=== PATIENT | female | born 1965 | race Caucasian/White ===

== ENCOUNTER 2019-06-29 16:50 | Observation (INO) | payer OTHER ==
[~2019-06-29] VITALS: Ht 154.9 cm; Wt 62.6 kg
--- NOTE | 2019-06-29 16:50 | NUR ---
PT BIBA TO BED 01.
[2019-06-29 17:01] VITALS: BP 164/90
--- NOTE | 2019-06-29 17:05 | NUR ---
ERMD AT BEDSIDE
[2019-06-29 17:41] LABS: BASOPHILS # (AUTO) 0.1 K/uL (0.00-0.22); BASOPHILS % (AUTO) 1.8 % (0.0-2.0); EOSINOPHILS # (AUTO) 0.4 K/uL (0-0.4); EOSINOPHILS % (AUTO) 8.5 % (0.0-4.0); HEMATOCRIT 35.5 % (36-48); HEMOGLOBIN 11.8 g/dL (12.0-16.0); LYMPHOCYTES # (AUTO) 1.6 K/uL (2.5-16.5); LYMPHOCYTES % (AUTO) 35.5 % (20.5-51.1); MEAN CORPUSCULAR HEMOGLOBIN 29 pg (27-31); MEAN CORPUSCULAR HGB CONC 33 g/dL (33-37); MEAN CORPUSCULAR VOLUME 87.4 fL (80-94); MONOCYTES # (AUTO) 0.4 K/uL (0.8-1.0); MONOCYTES % (AUTO) 8.3 % (1.7-9.3); NEUTROPHILS # (AUTO) 2.1 K/uL (1.8-7.7); NEUTROPHILS % (AUTO) 45.9 % (42.2-75.2); PLATELET COUNT (AUTO) 253 K/uL (140-450); RED BLOOD CELL COUNT(AUTO) 4.06 MIL/uL (4.20-5.40); RED CELL DISTRIBUTION WIDTH 14.2 % (11.6-13.7); WHITE BLOOD COUNT (AUTO) 4.6 K/uL (4.8-10.8)
--- NOTE | 2019-06-29 17:49 | NUR ---
C/O NON RADIATING INTERMITTENT L SIDED CHEST PAIN STARTING TODAY 01/17 AND SHARP. PT DENIES N/V/SOB/DIAPHORESIS. PT DENIES PAIN OF RIGHT NOW. PT ALERT AND CONVERSATING APPROPRIATELY. PT REPORTS THE PAIN BEGAN WHILE SHE WAS SITTING DOWN, AND LASTED FOR APPROX. 20 MIN. 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
--- NOTE | 2019-06-29 18:20 | NUR ---
PT RESTING IN BED, SON AT BEDSIDE
[2019-06-29 18:21] LABS: ALBUMIN 3.4 g/dL (3.4-5.0); ANION GAP 15.7 (8-16); CARBON DIOXIDE 23.3 mmol/L (21-32); CREATININE 3.7 mg/dL (0.6-1.3); TOTAL BILIRUBIN 0.2 mg/dL (0.0-1.0)
[2019-06-29] MEDS ORDERED: FENO145T PO (19:07)
[2019-06-29] MEDS ORDERED: GLIP5TER PO (19:07)
[2019-06-29] MEDS ORDERED: METO-747 PO (19:07)
[2019-06-29] MEDS ORDERED: DOLU1TAB PO (19:07)
[2019-06-29] MEDS ORDERED: FISH10005 PO (19:07)
[2019-06-29] MEDS ORDERED: LOSA50TA66 PO (19:07)
[2019-06-29] MEDS ORDERED: INSU100I7 SQ (19:07)
[2019-06-29] MEDS ORDERED: NIFE90TE3 PO (19:07)
[2019-06-29] MEDS ORDERED: ASPI-1205 PO (19:07)
[2019-06-29] MEDS ORDERED: MORPHINE SULFATE 2 MG/ML SYR IVP PRN (19:30)
[2019-06-29] MEDS ORDERED: NITROGLYCERIN 0.4 MG TAB SL PRN (19:30)
--- NOTE | 2019-06-29 19:40 | NUR ---
Patient will be admitted to care of DR. DAVIDSON. Admited to TELEMETRY. Will go to room 121-B. Belongings list completed. Report to JEM OWENS.
--- NOTE | 2019-06-29 19:51 | NUR ---
RECEIVED FROM ER PER ANGELES AWAKE AND ALERT. NO SOB AT THIS TIME. NO COMPLAINTS OF ANY PAIN AT THIS TIME. SKIN INTACT. PERSONAL BELONGINGS RE-CHECKED WITH ER NURSE AND PT. AGREED OF IT. DIAGNOSIS OF CHEST PAIN. IVF SITE TO [facility]#20. SITTING UP IN BED AT THIS TIME TALKING TO VISITORS. CARE PLANS FOR THE NIGHT DISCUSSED WITH HER AND CALL LIGHT USE EXPLAINED AND PLACED BESIDE HER. A/O X 4. ROM X 4. CTAB. NO EDEMA. TELEMETRY MONITORING. NSR IN PATENT AGENT.
[2019-06-29] MEDS ORDERED: INSULIN LISPRO SLIDING SCALE 100 UNITS/ML VIAL SUBQ PRN (20:00)
[2019-06-29] MEDS ORDERED: DEXTROSE 50% 50 ML SYR IVP PRN (20:00)
[2019-06-29] MEDS: NACL 0.45% 1,000 ML IV SCH (20:40)
[2019-06-29] MEDS: BLOOD GLUCOSE MONITORING 1 DEV DEV FS SCH (20:46)
[2019-06-29 21:28] VITALS: BP 150/86
--- NOTE | 2019-06-29 22:00 | NUR ---
PT. ADMISSION DONE WITH THE HELP OF DAUGHTER WHO SPEAKS GOOD GABONESE AND LIVES WITH HER. PT. ABLE TO UNDERSTAND GABONESE TOO AND AT TIMES WITH DAUGHTER AND SON IN LAW HELP. NO COMPLAINTS DONE AT THIS TIME. CARE PLANS FOR THE NIGHT DISCUSSED WITH HER AND FAMILY MEMBERS.
[2019-06-29 22:31] LABS: BARBITURATE, URINE NEG. ng/ml (NEG <=200); BENZODIAZEPINE, URINE NEG. ng/mL (NEG <=200); CANNABINOID, URINE NEG. ng/mL (NEG <=50); COCAINE, URINE NEG. ng/mL (NEG <=300); OPIATE, URINE NEG. ng/mL (NEG <=2000); PHENCYCLIDINE SCREEN,URINE NEG. ng/mL (NEG <=25)
[2019-06-30] VITALS: BP 142/83
--- NOTE | 2019-06-30 00:57 | NUR ---
PT. SLEEPING WELL AT THIS TIME. TELEMETRY MONITORING. NO S OB. NO RESTLESSNESS NOTED. CALL LIGHT WITH IN REACH.
--- NOTE | 2019-06-30 03:15 | NUR ---
SLEEPING WELL THIS SHIFT. ASSISTED TO RESTROOM AND ABLE TO USE CALL LIGHT FOR HELP. INDEPENDENT. USES CALL LIGHT FOR HELP. NO CHEST PAIN COMPLAINT.
[2019-06-30] MEDS: BLOOD GLUCOSE MONITORING 1 DEV DEV FS SCH ×2 (05:10→11:30)
[2019-06-30 05:23] VITALS: BP 155/83
[2019-06-30 06:10] LABS: BASOPHILS # (AUTO) 0.1 K/uL (0.00-0.22); BASOPHILS % (AUTO) 1.4 % (0.0-2.0); EOSINOPHILS # (AUTO) 0.4 K/uL (0-0.4); EOSINOPHILS % (AUTO) 6.6 % (0.0-4.0); HEMATOCRIT 30.6 % (36-48); HEMOGLOBIN 10.2 g/dL (12.0-16.0); LYMPHOCYTES # (AUTO) 2.3 K/uL (2.5-16.5); LYMPHOCYTES % (AUTO) 41.9 % (20.5-51.1); MEAN CORPUSCULAR HEMOGLOBIN 29 pg (27-31); MEAN CORPUSCULAR HGB CONC 33 g/dL (33-37); MEAN CORPUSCULAR VOLUME 87.6 fL (80-94); MONOCYTES # (AUTO) 0.5 K/uL (0.8-1.0); MONOCYTES % (AUTO) 9.3 % (1.7-9.3); NEUTROPHILS # (AUTO) 2.3 K/uL (1.8-7.7); NEUTROPHILS % (AUTO) 40.8 % (42.2-75.2); PLATELET COUNT (AUTO) 227 K/uL (140-450); RED BLOOD CELL COUNT(AUTO) 3.49 MIL/uL (4.20-5.40); RED CELL DISTRIBUTION WIDTH 14.2 % (11.6-13.7); WHITE BLOOD COUNT (AUTO) 5.6 K/uL (4.8-10.8)
--- NOTE | 2019-06-30 06:17 | NUR ---
SLEEPING . WAKES UP EASILY WHEN CALLED BY NAME. NO COMPLAINT OF ANY "DOLOR" THIS SHIFT. WILL ENDORSE TO AM RN FOR CONTINUITY OF CARE.
[2019-06-30 06:39] LABS: ANION GAP 14.6 (8-16); CARBON DIOXIDE 21.8 mmol/L (21-32); CREATININE 3.3 mg/dL (0.6-1.3); POTASSIUM 4.4 mmol/L (3.5-5.1)
--- NOTE | 2019-06-30 07:51 | NUR ---
Pt is in bed resting instable condition. Call light in reach
[2019-06-30 08:00] VITALS: BP 129/95
--- NOTE | 2019-06-30 08:25 | NUR ---
PATIENT HAS BEEN SCREENED AND CATEGORIZED MODERATE NUTRITION RISK. PATIENT WILL BE SEEN WITHIN 3-5 DAYS OF ADMISSION. 07/02/19 07/04/[address]
[2019-06-30] MEDS ORDERED: ASPIRIN 81 MG TAB.CHEW PO SCH (09:00)
--- NOTE | 2019-06-30 09:30 | NUR ---
Pt is resting in bed. Pt is in stable condition. Call light in reach.
--- NOTE | 2019-06-30 11:30 | NUR ---
Pt is resting in bed. Pt is in stable condition. Call light in reach.
[2019-06-30 12:00] VITALS: BP 179/91
[2019-06-30] MEDS: NACL 0.45% 1,000 ML IV SCH (12:00)
--- NOTE | 2019-06-30 15:00 | NUR ---
Pt is resting in bed. Pt is in stable condition. Pt ambulated in room. Tolerated well. Call light in reach.
--- NOTE | 2019-06-30 16:15 | NUR ---
Pt wanted to go home. Pt's son said that the patient is HIV positive and there are no medications given. Pt said that she wants to go home AMA. Called and explained that patient wants to go home AMA. Dr Madera approved her for AMA. Explained to patient about the risks of going AMA. Removed IV catheter. Catheter intact. Removed ID band, Pt's belonging with patient. Son accompanied pt. Pt walked with a steady gait. Notified charge nurse of patients departure. Addendum: 06/30/19 at 1943 by rEos Harding RN Pt signed AMA consent.
[2019-06-30] MEDS ORDERED: ATORVASTATIN 20 MG TAB PO SCH (21:00)
[2019-07-01] MEDS ORDERED: METOPROLOL SUCCINATE 50 MG TABER PO SCH (09:00)
[2019-07-01] MEDS ORDERED: LOSARTAN 25 MG TAB PO SCH (09:00)
== END 2019-06-30 16:45 | disposition left against medical advice (07) ==
LOC: MED 16:50 → EDBD 16:50 → INTOOBSV 19:10 → MTU 19:10 → MMU 20:26
PROVIDERS: ADMIT Internal Medicine Pulmonary Disease; ATTEND Internal Medicine Pulmonary Disease
DX: R07.89 Other chest pain (principal); I10 Essential (primary) hypertension; R94.30 Abnormal result of cardiovascular function study, unspecified; I25.10 Atherosclerotic heart disease of native coronary artery without angina pectoris; E78.5 Hyperlipidemia, unspecified; E11.9 Type 2 diabetes mellitus without complications; E78.00 Pure hypercholesterolemia, unspecified; Z79.82 Long term (current) use of aspirin; Z79.4 Long term (current) use of insulin; Z79.899 Other long term (current) drug therapy
CPT/HCPCS: 36415; 71045; 80048; 80053; 80305; 82948; 84484; 85025; 87081; 93005; 93307; 99285; G0378